=== PATIENT | male | born 1955 | race Caucasian/White ===

== ENCOUNTER 2016-03-12 11:15 | Emergency (ER) | payer OTHER ==
--- NOTE | 2016-03-12 11:36 | ER Document Report ---
ED Medical Screen (RME) - General Chief Complaint: Fall Injury Stated Complaint: FALL LEFT ARM PAIN Time seen by provider: 11:33 Mode of Arrival: Ambulatory Information source: Patient Notes: 61 yo male presents to ed for pain to back form waist up and left arm after falling with a roll of carpet. Knocked him out for a few seconds - HPI Onset: Just prior to arrival Onset/Duration: Sudden Quality of pain: Sharp Severity: Moderate Pain Level: 4 Associated Symptoms: Chest pain, Other Exacerbated by: Movement, Walking Relieved by: Denies Similar symptoms previously: No Recently seen / treated by doctor: No - Related Data Smoking: Cigarettes, Other - ppd Frequency of alcohol use: Social Drug Abuse: Marijuana
[2016-03-12] MEDS ORDERED: OXYCODONE-ACETAMINOPHEN 5-325 MG TABLET PO ONE (11:37)
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
[2016-03-12 13:10] VITALS: BP 133/87
== END 2016-03-12 13:10 | disposition home or self-care (01) ==
LOC: ER 11:15
DX: S06.9X1A Unspecified intracranial injury with loss of consciousness of 30 minutes or less, initial encounter (principal); S61.012A Laceration without foreign body of left thumb without damage to nail, initial encounter; S61.211A Laceration without foreign body of left index finger without damage to nail, initial encounter; S60.222A Contusion of left hand, initial encounter; S16.1XXA Strain of muscle, fascia and tendon at neck level, initial encounter; W17.89XA Other fall from one level to another, initial encounter; Y93.89 Activity, other specified; Y99.0 Civilian activity done for income or pay; M54.2 Cervicalgia; M54.9 Dorsalgia, unspecified; M79.642 Pain in left hand; M25.532 Pain in left wrist; M79.632 Pain in left forearm; I25.2 Old myocardial infarction; I10 Essential (primary) hypertension; F17.210 Nicotine dependence, cigarettes, uncomplicated; Z88.5 Allergy status to narcotic agent; Z88.6 Allergy status to analgesic agent; Z88.0 Allergy status to penicillin
CPT/HCPCS: 70450; 72125; 99284